=== PATIENT | female | born 1945 | race Caucasian/White ===

== ENCOUNTER 2021-10-11 10:57 | Day surgery (SDC) | payer MEDICARE, OTHER, SELFPAY ==
[2021-10-11 11:51] VITALS: BP 131/84; PULSE 65; RESP 18; TEMP 36.9; O2SAT 100; BMI 24.9
[2021-10-11] MEDS: PROPARACAINE 0.5% OPHTH SOL 2 DROPS EYE-OP (11:59)
[2021-10-11] MEDS: CATARACT EYE COMPOUND (10 DROPS/SYRINGE) 3 DROPS EYE-OP (12:03)
--- NOTE | 2021-10-11 12:43 | PM.PREOP ---
Pre-operative Note Interval Note History & Physical reviewed/Exam performed by Physician: Yes Changes to H&P: No
--- NOTE | 2021-10-11 12:43 | PM.PREOP ---
Pre-operative Note Interval Note History & Physical reviewed/Exam performed by Physician: Yes Changes to H&P: No Addendum Addendum Note: There are no non surgical alternatives to the patient's condition. Deterioration of the patient's condition is expected. Delay may result in more complex future surgery
--- NOTE | 2021-10-11 12:45 | PM.OP.1 ---
Operative Date/Time/Diagnoses Pre-op diagnosis: Nuclear Cataract Left eye Post-op diagnosis: same Procedure & Clinicians Same procedure as scheduled: Yes Surgeon: Kieran Richard Anesthesia Type: MAC +/- and Sedation Operative Notes Procedure in detail: Patient brought to the operating suite. Tetracaine drops placed in the left eye. Patient was prepped and draped in sterile manner. Wire lid speculum was placed in the eye. Betadine drops were placed on the eye. This was irrigated. Lidocaine jelly was placed on the eye. A paracentesis port was created with a side-port blade. 0.1 mL 1% preservative free lidocaine was injected into the anterior chamber. The anterior chamber was deepened with viscoelastic. 2.6 mm keratome was used to create a temporal clear corneal incision. Cystotome and Utrata forceps were used to create continuous tear capsulorrhexis. Balanced salt solution was used to hydro dissect the nucleus. The phacoemulsification handpiece was inserted and the nucleus was removed using the stop and chop technique. The irrigation aspiration handpiece was inserted and the remaining cortex was removed. Anterior chamber was deepened with viscoelastic. An Matt DIB00 intraocular lens with a power of 19.0 was injected into the capsular bag. Irrigation aspiration handpiece was inserted and the remaining viscoelastic was removed. Incision was hydrated with balanced salt solution and found to be leak free with pressure with Weck-Lisa sponges. 0.1 mL Vigamox injected anterior chamber. 0.3 mL Kenalog 10 mg was injected subconjunctivally. Lid speculum was removed. The patient left the operating room in excellent condition. Complications: none Post-operative Condition: stable Disposition: same day surgery
[2021-10-11] MEDS: HYALURONATE SODIUM 30 MG-10 MG/ML SYRINGES 1 BOX INTRAOCULA (12:56)
[2021-10-11] MEDS: MOXIFLOXACIN INJ 4 MG/0.8 ML VIAL 0.5 MG EYE-OP (12:56)
[2021-10-11] MEDS: TETRACAINE 0.5% OPHTH DROPS 4 ML 2 DROPS EYE-OP (12:57)
[2021-10-11] MEDS: BALANCED SALT IRRIG SOLN NO.2 500 ML, EPINEPHrine 1 MG IRR (12:57)
[2021-10-11] MEDS: PHENYLEPHRINE/LIDOCAINE VIAL (OR) 0.2 ML EYE-OP (12:57)
[2021-10-11] MEDS: TRIAMCINOLONE 50 MG/5 ML VIAL INJ (12:57)
[2021-10-11] MEDS: LIDOCAINE 2% (GLYDO) 6 ML GEL TOP (12:57)
[2021-10-11 13:32] VITALS: BP 113/80; PULSE 62; RESP 18; TEMP 36.1; O2SAT 98
== END 2021-10-11 13:35 | disposition home or self-care (01) ==
PROVIDERS: PCP Nurse Practitioner Family; Referring Provider Ophthalmology; Visit Provider Ophthalmology
PROC: (CPT 66984; principal; 2021-10-11 12:45)
DX: H25.12 Age-related nuclear cataract, left eye (principal)
CPT/HCPCS: 66984; J0171; J2250; J3301

== ENCOUNTER → 2021-10-24 16:40 | Outpatient (CLI) | payer MEDICARE, OTHER, SELFPAY | PROVIDERS: PCP Nurse Practitioner Family; Visit Provider Family Medicine Sleep Medicine | DX: Z20.822 Contact with and (suspected) exposure to COVID-19 (principal) | CPT/HCPCS: 87635; C9803 ==

== ENCOUNTER 2021-10-25 10:49 | Day surgery (SDC) | payer MEDICARE, OTHER, SELFPAY ==
[2021-10-24 17:12] LABS: COVID19 -Nasal RAPID Negative (Negative)
== END 2021-10-25 10:50 | disposition home or self-care (01) ==
LOC: OR 10:50
PROVIDERS: PCP Nurse Practitioner Family; Referring Provider Ophthalmology; Visit Provider Ophthalmology

== ENCOUNTER → 2021-11-21 14:57 | Outpatient (CLI) | payer MEDICARE, OTHER, SELFPAY ==
[2021-11-21 18:22] LABS: COVID19 -Nasal RAPID Negative (Negative)
== END ==
PROVIDERS: PCP Nurse Practitioner Family; Visit Provider Nurse Practitioner Family
DX: Z20.822 Contact with and (suspected) exposure to COVID-19 (principal)
CPT/HCPCS: 87635; C9803

== ENCOUNTER 2021-11-22 10:51 | Day surgery (SDC) | payer MEDICARE, OTHER, SELFPAY ==
[2021-11-22] MEDS: PROPARACAINE 0.5% OPHTH SOL 2 DROPS EYE-OP (11:17)
[2021-11-22] MEDS: CATARACT EYE COMPOUND (10 DROPS/SYRINGE) 3 DROPS EYE-OP (11:17)
[2021-11-22 11:22] VITALS: BP 115/68; PULSE 68; RESP 16; TEMP 36.6; O2SAT 95; BMI 25.0
--- NOTE | 2021-11-22 12:27 | PM.PREOP ---
Pre-operative Note Interval Note History & Physical reviewed/Exam performed by Physician: Yes Changes to H&P: No
--- NOTE | 2021-11-22 12:27 | PM.OP.1 ---
Operative Date/Time/Diagnoses Pre-op diagnosis: Nuclear cataract right eye Procedure & Clinicians Procedure: Cataract Surgery Same procedure as scheduled: Yes Surgeon: Kieran Richard Anesthesia Type: MAC +/- and Sedation Operative Notes Procedure in detail: Patient brought to the operating suite. Tetracaine drops placed in the right eye. Patient was prepped and draped in sterile manner. Wire lid speculum was placed in the eye. Betadine drops were placed on the eye. This was irrigated. Lidocaine jelly was placed on the eye. A paracentesis port was created with a side-port blade. 0.1 mL 1% preservative free lidocaine was injected into the anterior chamber. The anterior chamber was deepened with viscoelastic. 2.6 mm keratome was used to create a temporal clear corneal incision. Cystotome and Utrata forceps were used to create continuous tear capsulorrhexis. Balanced salt solution was used to hydro dissect the nucleus. The phacoemulsification handpiece was inserted and the nucleus was removed using the stop and chop technique. The irrigation aspiration handpiece was inserted and the remaining cortex was removed. Anterior chamber was deepened with viscoelastic. An Matt DIB00 intraocular lens with a power of 19.0 was injected into the capsular bag. Irrigation aspiration handpiece was inserted and the remaining viscoelastic was removed. Incision was hydrated with balanced salt solution and found to be leak free with pressure with Weck-Lisa sponges. 0.1 mL Vigamox injected anterior chamber. 0.3 mL Kenalog 10 mg was injected subconjunctivally. Lid speculum was removed. The patient left the operating room in excellent condition. Complications: none Post-operative Condition: stable Disposition: same day surgery
[2021-11-22] MEDS: MOXIFLOXACIN INJ 4 MG/0.8 ML VIAL 0.5 MG EYE-OP (12:44)
[2021-11-22] MEDS: HYALURONATE SODIUM 30 MG-10 MG/ML SYRINGES 1 BOX INTRAOCULA (12:44)
[2021-11-22] MEDS: TRIAMCINOLONE 50 MG/5 ML VIAL INJ (12:45)
[2021-11-22] MEDS: PHENYLEPHRINE/LIDOCAINE VIAL (OR) 0.2 ML EYE-OP (12:45)
[2021-11-22] MEDS: TETRACAINE 0.5% OPHTH DROPS 4 ML 2 DROPS EYE-OP (12:45)
[2021-11-22] MEDS: LIDOCAINE 2% (GLYDO) 6 ML GEL TOP (12:45)
[2021-11-22] MEDS: BALANCED SALT IRRIG SOLN NO.2 500 ML, EPINEPHrine 1 MG IRR (12:45)
--- NOTE | 2021-11-22 12:47 | SUR.OPER ---
Supine on eye stretcher, head on extension cradle secured with tape. Arms tucked at sides with blanket. Pillow under knees.
[2021-11-22 13:03] VITALS: BP 113/68; PULSE 61; RESP 16; TEMP 36.4; O2SAT 98
--- NOTE | 2021-11-22 13:05 | SUR.PHASEI ---
Surgical site covered with eye patch CDI
[2021-11-22 13:08] VITALS: BP 115/70; PULSE 68; RESP 15; TEMP 36.2; O2SAT 98
== END 2021-11-22 13:15 | disposition home or self-care (01) ==
PROVIDERS: PCP Nurse Practitioner Family; Referring Provider Ophthalmology; Visit Provider Ophthalmology
PROC: (CPT 66984; principal; 2021-11-22 12:45)
DX: H25.11 Age-related nuclear cataract, right eye (principal)
CPT/HCPCS: 66984; J0171; J2250; J3301

== ENCOUNTER → 2025-05-27 12:30 | Outpatient (CLI) | payer MEDICARE, OTHER, SELFPAY ==
--- NOTE | 2025-05-27 12:33 | DI.CT.S_ITS ---
PROCEDURE: CT ABDOMEN RENAL PROTOCOL INDICATIONS: Cyst of left kidney TECHNIQUE: Optional 5 mm thick noncontrast images acquired from the diaphragm to the iliac crests. After the administration of intravenous contrast, 5 mm thick images again acquired from the diaphragm to the iliac crests in the arterial and urographic phases. 5 mm thick coronal and sagittal reformats were then acquired. For radiation dose reduction, the following was used: automated exposure control, adjustment of mA and/or kV according to patient size. COMPARISON: None. FINDINGS: Image quality: Diagnostic. Kidneys and Ureters: No hydronephrosis. No solid mass. No complex renal cystic lesion which requires follow up. Moderate burden of bilateral , punctate nonobstructing nephrolithiasis. Non complex bilateral renal cystic lesions. OTHER: Lower chest: Unremarkable. Liver: No solid mass. Gallbladder: No radiopaque gallstones or wall thickening. Biliary ducts: No biliary dilation. Pancreas: No ductal dilation. Spleen: Size is within normal limits. Adrenal Glands: No adrenal nodules. Stomach and Bowel: Normal colonic caliber, without significant wall thickening. Peritoneum: No abnormal intraperitoneal fluid. No free air. Ventral Wall: Small umbilical hernia containing fat. Abdominal Nodes: No retroperitoneal or mesenteric adenopathy by size criteria. Vessels: Aorta and inferior vena cava are normal in size. Bones: No aggressive osseous abnormality. Degenerative disc disease of the lumbar spine. IMPRESSION: Benign bilateral renal cystic lesions without internal complexity; Bosniak 1 requiring no further follow-up. Moderate burden of punctate nonobstructing bilateral nephrolithiasis. Dictated by: Nikolas Trevino M.D. on 05/27/2025 at 14:55 Approved by: Nikolas Trevino M.D. on 05/27/2025 at 15:00
[2025-05-27 13:06] LABS: Estimated Glomerular Filt Rate 56 mL/min (>60)
== END ==
PROVIDERS: PCP Nurse Practitioner Family; Referring Provider Nurse Practitioner Family; Visit Provider Physician Assistant
DX: Q61.9 Cystic kidney disease, unspecified (principal); N20.0 Calculus of kidney
CPT/HCPCS: 36415; 74170; 82565; Q9967

== ENCOUNTER → 2025-06-12 11:14 | Outpatient (CLI) | payer MEDICARE, OTHER, SELFPAY ==
--- NOTE | 2025-06-12 11:17 | DI.MRI.S_ITS ---
PROCEDURE: MR SHOULDER LT WO CON INDICATIONS: pain TECHNIQUE: Noncontrast oblique coronal T2 fast spin echo with fat saturation, oblique sagittal T1 spin echo and T2 fast spin echo with fat saturation, axial T1 spin echo and T2 fast spin echo with fat saturation through the shoulder. COMPARISON: None. FINDINGS: Image quality: Excellent. Rotator cuff: Moderate grade articular and bursal surface partial thickness tear involving distal supraspinatus at its insertion on humeral head is seen extending to musculotendinous junction. Low to moderate grade articular surface partial- thickness tear involving distal infraspinatus at its insertion on humeral head is seen. Low to moderate grade intrasubstance partial-thickness tear involving distal subscapularis is also noted. No full-thickness rotator cuff tendon rupture. Sagittal images demonstrate mild supraspinatus muscle atrophy. Bones and bursae: No bone marrow contusions or fractures. Moderate acromioclavicular joint osteoarthritic changes are seen. [id number] glenohumeral joint osteoarthritic changes also noted. Type 1 acromion without an os acromiale. Moderate joint effusion and subacromial subdeltoid bursal fluid, no loose bodies. Capsule and soft tissues: T2 hyperintense signal and fraying involving superior anterior glenoid labrum suggestive of superior anterior labral tear. T2 hyperintense signal and fraying involving anterior inferior glenoid labrum is also seen. Tendinosis and low-grade partial-thickness tear involving proximal intra-articular portion of long head of biceps is seen. IMPRESSION: 1. Moderate grade articular and bursal surface partial thickness tear involving distal supraspinatus extending to musculotendinous junction. Low to moderate grade articular surface partial-thickness tear involving distal infraspinatus. Low to moderate grade intrasubstance partial-thickness tear involving distal subscapularis. No full- thickness rotator cuff tendon rupture. Mild supraspinatus muscle atrophy. 2. Moderate acromioclavicular joint osteoarthritis and [id number] glenohumeral joint osteoarthritis. No fracture or dislocation. Moderate joint effusion and subacromial subdeltoid bursal fluid, no loose bodies. 3. Finding is suggestive of subtle superior anterior glenoid labral tear and anterior inferior glenoid labral tear. 4. Tendinosis and low to moderate grade partial-thickness tear involving proximal long head of biceps. Dictated by: Sterling Bello M.D. on 06/12/2025 at 21:36 Approved by: Sterling Bello M.D. on 06/12/2025 at 21:39
== END ==
LOC: MRI 11:17
PROVIDERS: PCP Physician Assistant; Referring Provider Physician Assistant; Visit Provider Physician Assistant
DX: S46.112A Strain of muscle, fascia and tendon of long head of biceps, left arm, initial encounter (principal); M75.112 Incomplete rotator cuff tear or rupture of left shoulder, not specified as traumatic; M62.512 Muscle wasting and atrophy, not elsewhere classified, left shoulder; M19.012 Primary osteoarthritis, left shoulder; M67.814 Other specified disorders of tendon, left shoulder; M25.412 Effusion, left shoulder; G89.29 Other chronic pain
CPT/HCPCS: 73221

== ENCOUNTER → 2025-08-05 14:17 | Outpatient (CLI) | payer MEDICARE, OTHER, SELFPAY ==
--- NOTE | 2025-08-05 14:19 | DI.RAD.S_ITS ---
PROCEDURE: XR DEXA AXIAL SKELETON INDICATIONS: Degenerative scoliosis COMPARISON: None. FINDINGS: Lumbar Spine: Bone mineral density 1.473 g/cm2, T score 3.8, normal bone mineral density. L2 excluded from activation due to increase bone density. Left Femoral Neck: Bone mineral density is 0.890 g/cm2, T score 0.4. Left Hip: Bone mineral density 1.105 g/cm2, T score 1.3, normal density. Fracture Risk Calculation (when applicable): Not applicable due to normal bone mineral density. (T score greater or equal to -1.0 to: NORMAL) (T score from -1.1 to -2.4: OSTEOPENIA) (T score less than or equal to -2.5: OSTEOPOROSIS) IMPRESSION: Normal bone mineral density. Follow-up guidelines as follows: Osteoporosis: Consider a repeat DEXA and Vertebral Fracture Assessment (VFA) exam in 2 years or sooner if medically necessary, to reassess this patient's status. Osteopenia: Consider a repeat DEXA in 2-3 years to reassess this patient's status, or if there is a new clinical indication. Normal: Consider a repeat DEXA in 5 years or sooner, or if there is a new clinical indication. All treatment decisions require clinical judgment and consideration of individual patient factors, including patient preferences, comorbidities, previous drug use, risk factors not captured in the FRAX model (e.g., frailty, falls, vitamin D deficiency, increased bone turnover, interval significant decline in bone density ) and possible under- or over-estimation of fracture risk by FRAX. In addition, the NOF Guide recommends that FDA-approved medical therapies be considered in postmenopausal women and men age >= 50 years with a: * Hip or vertebral (clinical or morphometric) fracture * T-score of <=-2.5 at the spine or hip * Ten-year fracture probability by FRAX of >= 3% for hip fracture or >=20% for major osteoporotic fracture. Dictated by: Kanchan Bird M.D. on 08/06/2025 at 8:58 Approved by: Kanchan Bird M.D. on 08/06/2025 at 9:00
--- NOTE | 2025-08-05 14:19 | DI.CT.S_ITS ---
PROCEDURE: CT LUMBAR SPINE WO CON INDICATIONS: Degenerative scoliosis TECHNIQUE: Noncontrast 3 mm thick sections acquired from the T12 level to the sacrum. Sagittal and coronal reformats were constructed. For radiation dose reduction, the following was used: automated exposure control. COMPARISON: [facility], CT, CT THORACIC SPINE WO CON, 08/05/2025, 14:20. [facility], CT, CT ABDOMEN RENAL PROTOCOL, 05/27/2025, 13:31. FINDINGS: Image quality: Excellent. Bones: S shaped scoliotic curvature is seen, including 20??? levoconvex lumbar scoliosis. Minimal retrolisthesis can be seen at L3-L4, L4-L5, and L5-S1. No acute vertebral body compression fractures. No suspicious lytic or blastic bony lesions. No pars defects. T12-L1: Normal. L1-L2: At least moderate loss of disc height is seen on the left side. Endplate irregularity and sclerosis can be seen. Vacuum disc phenomenon is seen at this level. Moderate generalized disc bulge is seen. Moderate facet joint hypertrophy is seen. There is at least moderate left-sided and moderate right-sided neural narrowing. Mild to moderate central canal narrowing is seen L2-L3: Moderate to severe loss of disc height is seen. There is a degree of vertebral body fusion. Bridging anterior osteophytes are seen, as on series 5, image 29. Moderate generalized disc bulge is seen. Moderate facet joint hypertrophy is seen. Moderate to severe bilateral neural foraminal narrowing can be seen. Moderate central canal narrowing is seen. L3-L4: Moderate to severe loss of disc height is seen. Endplate irregularity and sclerosis can be seen. Moderate generalized disc bulge is seen. There is a superimposed central disc osteophyte protrusion. There is moderate right-sided and mild left-sided facet hypertrophy. Moderate to severe bilateral neural foraminal narrowing is seen. Moderate central canal narrowing is seen. L4-L5: At least moderate loss of disc height can be seen. Endplate irregularity and sclerosis can be seen. Moderate generalized disc bulge is seen. There is a superimposed central disc osteophyte protrusion. Moderate to severe bilateral neural foraminal narrowing is seen. Mild to moderate central canal narrowing is seen. L5-S1: Moderate loss of disc height is seen. Endplate irregularity and sclerosis can be seen. Vacuum disc phenomenon is seen at this level. Moderate generalized disc bulge is seen. There is a superimposed central disc osteophyte protrusion. At least moderate facet hypertrophy can be seen. Moderate to severe bilateral neural foraminal narrowing is seen. Mild central canal narrowing is seen. Soft tissues: No retroperitoneal masses or hematomas. Visualized aorta is normal in caliber. Atherosclerotic calcification is noted. Nonobstructing right-sided kidney stones are seen, measuring up to 4-5 mm, and 650 Hounsfield units. Simple bilateral renal cysts are seen, which are better demonstrated on the contrast enhanced prior CT. IMPRESSION: S shaped lumbar scoliosis is seen. Multiple levels of significant lumbar spine degenerative change can be seen. Additional findings: Nonobstructing right-sided kidney stones Simple renal cysts Dictated by: Shahriar Hinojosa M.D. on 08/05/2025 at 15:40 Approved by: Shahriar Hinojosa M.D. on 08/05/2025 at 15:46
--- NOTE | 2025-08-05 14:19 | DI.CT.S_ITS ---
PROCEDURE: CT THORACIC SPINE WO CON INDICATIONS: Degenerative scoliosis TECHNIQUE: Noncontrast 3 mm thick sections acquired through the region of interest in the thoracic spine. Sagittal and coronal reformats were then constructed. For radiation dose reduction, the following was used: automated exposure control. COMPARISON: [facility], CT, CT ABDOMEN RENAL PROTOCOL, 05/27/2025, 13:31. [facility], CT, CT LUMBAR SPINE WO CON, 08/05/2025, 14:20. FINDINGS: Image quality: This examination is limited by involuntary motion artifact. Bones: There is 11??? dextroconvex thoracic scoliosis. Generalized degenerative changes are seen with scattered levels of disc space narrowing with associated endplate irregularity and sclerosis. Several levels of bridging anterior osteophytes can be seen. No significant central canal narrowing is seen. No acute vertebral body compression fractures. No suspicious sclerotic or lytic bony lesions. Central spinal canal is of normal overall caliber. Soft tissues: No paravertebral masses or hematomas. Visualized posteromedial lungs appear clear. Nonobstructing right-sided kidney stones are seen with the largest measuring 4-5 mm and 650 Hounsfield units. Elevation of the right hemidiaphragm can be seen. IMPRESSION: There is 11??? dextroconvex thoracic scoliosis. Generalized thoracic spine degenerative change can be seen. Dictated by: Shahriar Hinojosa M.D. on 08/05/2025 at 15:37 Approved by: Shahriar Hinojosa M.D. on 08/05/2025 at 15:40
== END ==
LOC: RAD 14:18
PROVIDERS: PCP Physician Assistant; Referring Provider Physician Assistant; Visit Provider Orthopaedic Surgery
DX: M48.062 Spinal stenosis, lumbar region with neurogenic claudication (principal); M41.50 Other secondary scoliosis, site unspecified; M47.814 Spondylosis without myelopathy or radiculopathy, thoracic region; M47.816 Spondylosis without myelopathy or radiculopathy, lumbar region; M81.0 Age-related osteoporosis without current pathological fracture; N20.0 Calculus of kidney; N28.1 Cyst of kidney, acquired
CPT/HCPCS: 72128; 72131; 77080